=== PATIENT | male | born 1960 | race Caucasian/White ===

== ENCOUNTER 2020-07-11 10:49 | Emergency (ER) | payer MEDICARE, SELFPAY ==
[~2020-07-11] VITALS: Ht 172.7 cm; Wt 75.0 kg
[~2020-07-11 10:49] MED LIST: ASPI-1265 PO; ATOR20TA66 PO; METO25TA6 PO; NITR0.4T51 SL; TICA90TA PO
[2020-07-11 11:24] VITALS: BP 124/73
== END 2020-07-11 12:05 | disposition home or self-care (01) ==
LOC: ER 10:50
DX: R05 Cough (principal); J02.9 Acute pharyngitis, unspecified; R50.9 Fever, unspecified; I25.10 Atherosclerotic heart disease of native coronary artery without angina pectoris; I10 Essential (primary) hypertension; I25.2 Old myocardial infarction; G89.29 Other chronic pain; Z90.49 Acquired absence of other specified parts of digestive tract; Z98.890 Other specified postprocedural states; Z79.82 Long term (current) use of aspirin; Z79.899 Other long term (current) drug therapy; Z20.828 Contact with and (suspected) exposure to other viral communicable diseases
CPT/HCPCS: 36415; 87635; 99281; 99283